=== PATIENT | female | born 1955 | race Caucasian/White ===

== ENCOUNTER → 2017-10-06 | Outpatient (CLI) | payer MEDICAID ==
[~2017-10-06] MED LIST: ACE325 PO; ASC500 PO; AVONEX IM; BACL-51 PO; CA C1TAB59 PO; CEP500 PO; CITA-156 PO; DEXL60CA6 PO; DIC10 PO; DICY10CA62 PO; EST3 PO; FISH OIL1 CAP PO; IBU800 PO; LEVO100T95 PO; LEVO112T43 PO; LEVOTHY; LIS10 PO; METXR500 PO; MULT-1335 PO; MULTI VITAMIN; OLAN15TA18 PO; OLAN20TA17 PO; OXYB10TA21 PO; PREMARIN; QUE100 PO; SIMV-42 PO; [UNRECOGNIZED DRUG - CODE]
--- NOTE | 2017-10-07 09:06 | RADIOLOGY IMAGING REPORT ---
FACILITY: [facility] - [place] PATIENT NAME: GASTON VILCHIS : [id number] MR: [id number] V: [id number] EXAM DATE: ORDERING PHYSICIAN: KARINA MCCRAY TECHNOLOGIST: Linda Dominguez PROCEDURE:BILATERAL DIGITAL SCREENING MAMMOGRAM WITH CAD ASSISTED INTERPRETATION & 3D TOMOSYNTHESIS COMPARISON:Prior mammograms 08/27/16, 03/22/15, 08/13/11 INDICATIONS:SCREENING FINDINGS: Moderately heterogeneous fibroglandular tissue is seen throughout the breasts. Most of the parenchymal pattern has remained stable allowing for difference in mammographic technique & patient positioning. There are scattered round calcifications seen throughout the breasts. The calcifications in the left breast appear slightly more conspicuous although this may be related to the difference in imaging technique. Sense the current examination was preformed with 3D breast Tomosynthesis. DIAGNOSTIC CATEGORY 3--PROBABLY BENIGN FINDING. RECOMMENDATIONS: SIX MONTH FOLLOW-UP DIAGNOSTIC MAMMOGRAM: LEFT BREAST. IMPRESSION: BIRADS 3: Probably benign finding A 6 month follow-up breast mammogram is recommended Dictated by: Ada Martinez M.D. on 10/06/2017 at 17:07 Transcribed by: MEI on 10/07/2017 at 8:14 Approved by: Ada Martinez M.D. on 10/07/2017 at 9:04 [facility]
== END ==
LOC: MAMO 00:15
PROVIDERS: ATTEND Physician Assistant
DX: Z12.31 Encounter for screening mammogram for malignant neoplasm of breast (principal); R92.1 Mammographic calcification found on diagnostic imaging of breast
CPT/HCPCS: 77063; G0202; 77067

== ENCOUNTER → 2018-04-21 | Outpatient (CLI) | payer MEDICAID ==
[~2018-04-21] MED LIST changes: +ASCO-182 PO; +BISA1POW MC; +CARB-91 PO; +CHOL10005 PO; +DIME240C2 PO; +FLAX100041 PO
--- NOTE | 2018-04-22 11:39 | RADIOLOGY IMAGING REPORT ---
[place] [facility] [place] NAME: GASTON VILCHIS : [id number] MR: [id number] V: [id number] EXAM DATE: ORDERING PHYSICIAN: KARINA MCCRAY TECHNOLOGIST: Jenniffer Lomas PROCEDURE:LEFT DIGITAL DIAGNOSTIC MAMMOGRAM WITH CAD ASSISTED INTERPRETATION & 3D TOMOSYNTHESIS COMPARISON:Prior mammograms 10/06/17, 08/27/16, 03/22/15, 08/13/11. INDICATIONS:lt breast lump FINDINGS: Moderately heterogeneous fibroglandular tissue is seen throughout the breasts. The groupings of calcifications in the upper outer quadrant of the Left breast appear more prominent and have increased in number when compared to the prior Tomographic study. Given this interval change biopsy is recommended. The patient is apparently not a candidate for a Stereotactic biopsy therefore surgical excision of these calcifications aided by a needle hook wire mammographic localization is recommended. DIAGNOSTIC CATEGORY 4--SUSPICIOUS FOR MALIGNANCY. RECOMMENDATIONS: SURGICAL BIOPSY COORDINATED WITH MAMMOGRAM HOOKWIRE LOCALIZATION: LEFT BREAST. IMPRESSION: BIRADS 4: Suspicious for malignancy. Surgical biopsy coordinated with mammographic hook wire localization of the increasing calcifications in the upper outer quadrant of the Left breast recommended for further evaluation. Dictated by: Ada Martinez M.D. on 04/21/2018 at 17:05 Transcribed by: MEI on 04/22/2018 at 7:50 Approved by: Ada Martinez M.D. on 04/22/2018 at 11:38 [facility]
== END ==
LOC: MAMO 01:31
PROVIDERS: ATTEND Physician Assistant
DX: R92.1 Mammographic calcification found on diagnostic imaging of breast (principal)
CPT/HCPCS: 77061; 77065

== ENCOUNTER 2018-05-12 00:14 | Day surgery (SDC) | payer MEDICAID ==
[~2018-05-12] VITALS: Ht 167.6 cm; Wt 80.7 kg
[~2018-05-12 00:14] MED LIST changes: +DOCU-442 PO; +ESCI10TA8 PO; +LACT1CAP6 PO; +LEVO88TA45 PO
[2018-05-12 08:42] LABS: PLATELET COUNT, AUTOMATED 311 K/uL (150-450)
[2018-05-12] MEDS ORDERED: NORMOSOL R SOLN(*) 1000 ML BAG 1,000 ML IV PRN (09:25)
[2018-05-12] MEDS ORDERED: LIDOCAINE/SOD BICARB 8.4% SYR ID ONE (09:25)
[2018-05-12] MEDS ORDERED: ceFAZolin(*) 2GM/D5W 50ML 50 ML IVPB ONE (09:25)
[2018-05-12] MEDS ORDERED: FAMOTIDINE 20 MG TAB PO ONE (09:25)
[2018-05-12] MEDS ORDERED: MIDAZOLAM 2 MG/2 ML VIAL IVP PRN (09:25)
[2018-05-12] MEDS ORDERED: METOCLOPRAMIDE 10 MG/2 ML SDV ONE (09:41)
[2018-05-12] MEDS ORDERED: LIDOCAINE MPF 1% 5 ML VIAL ONE (09:41)
[2018-05-12] MEDS ORDERED: DEXAMETHASONE SOD 4 MG/ML VIAL ONE (09:41)
[2018-05-12] MEDS ORDERED: PROPOFOL EMUL(*) 10MG/ML 20 ML 20 ML ONE (09:41)
[2018-05-12] MEDS ORDERED: ONDANSETRON 4 MG/2 ML VIAL ONE (09:41)
[2018-05-12] MEDS ORDERED: fentaNYL CITR 100 MCG/2 ML AMP ONE (09:47)
[2018-05-12 11:14] VITALS: BP 104/75
[2018-05-12] MEDS ORDERED: ROPIVACAINE 0.5% 20 ML VIAL ONE (11:23)
[2018-05-12] MEDS ORDERED: DOCU-416 PO (13:38)
[2018-05-12] MEDS ORDERED: OXYC-854 PO (13:38)
--- NOTE | 2018-05-12 13:55 | Short(Outpt) Discharge Summary ---
Discharge Summary Reason for Hosp/Final Diag: (1) Calcification of left breast on mammography Status: Chronic Hospital Course & Plan: Left breast wire guided lesion excision completed without problems. Departure Discharge to: Home, Self Care Discharge Instructions Home Meds Active Scripts Docusate Sodium (COLACE) 100 Mg Capsule, 1 CAP PO BID, #30 CAPSULE 0 Refills Prov:ANNABEL DASILVA MD 05/12/18 Oxycodone Hcl/Acet 5/325 Mg (ENDOCET 5-325 TABLET) 1 Each Tablet, 1 TAB PO Q4H PRN for PAIN, #30 TAB 0 Refills Prov:ANNABEL DASILVA MD 05/12/18 Reported Medications Lactobacillus Combination No.4 (PROBIOTIC) 1 Each Capsule, 1 EACH PO DAILY, CAPSULE 05/04/18 Docusate Sodium (DULCOLAX STOOL SOFTENER) 100 Mg Capsule, 100 MG PO DAILY, CAPSULE 05/04/18 Escitalopram Oxalate (ESCITALOPRAM OXALATE) 10 Mg Tablet, 10 MG PO QDAY, TAB 05/04/18 Levothyroxine Sodium (LEVOTHYROXINE SODIUM) 88 Mcg Tablet, 88 MCG PO QDAY 05/04/18 Flaxseed Oil (FLAX SEED OIL) 1,000 Mg Capsule, 1000 MG PO QDAY, CAPSULE 04/25/18 Cholecalciferol (Vitamin D3) (VITAMIN D3) 1,000 Unit Tablet, 1000 UNIT PO QDAY, TAB 04/25/18 Ascorbic Acid (VITAMIN C) 500 Mg Tablet, 1000 MG PO DAILY, TAB 04/25/18 Dimethyl Fumarate (TECFIDERA) 240 Mg Capsule.dr, 240 MG PO BID 04/25/18 Carbamazepine (CARBAMAZEPINE) 200 Mg Tablet, 200 MG PO TID 04/25/18 Oxybutynin Chloride (DITROPAN XL) 10 Mg Tab.er.24, 10 MG PO TID, TAB 04/25/18 Baclofen (Lioresal Intrathecal) 500 Mcg/Ml/Kit Kit, 75 MCG DAILY 04/30/12 Metformin Hcl (Metformin Er) 500 Mg Tab.sr.24h, 500 MG PO DAILY, 0 Refills 08/18/11 Simvastatin (Zocor) 20 Mg Tablet, 20 MG PO QHS, 0 Refills 08/18/11 Olanzapine (Zyprexa) 20 Mg Tablet, 20 MG PO DAILY, 0 Refills 08/18/11 Lisinopril (Prinivil) 10 Mg Tab, 0 PO QDAY, #20 0 Refills 03/03/09 Follow up Referrals: General Surgery - 05/17/18 @ Surgery, General with ANNABEL DASILVA MD You have a follow up appointment scheduled with Dr. Dasilva on 05/27/18, at 9:15am. Diet: Regular Activity: As Tolerated Special Instructions: You may remove the white surgical dressings on 05/14/18, then you can shower. After showering, leave the incisions open to air but leave the steristrips in place until they fall off on their own. Do not immerse the incisions for 2 weeks. ANNABEL DASILVA MD May 12, 2018 13:55
--- NOTE | 2018-05-12 14:04 | Post Operative Progress Note ---
Post Operative Progress Note Date: May 12, 2018 Time: 13:57 Surgeon: Marco Antonio Dictation number: [id number] Anesthesia: LMA by Dr. Heard Pre-Op Diagnosis: Left breast calcifications on mammogram Post-Op Diagnosis: SANKET Findings: C/W dx Procedure(s): Left breast wire guided lesion excision Specimen Removed:(May be N/A): Left breast lesion Complications: None Fluids: See anesthesia record Estimated Blood Loss: Minimal Date OP Note Dictated: May 12, 2018 Time OP Note Dictated: 14:00 ANNABEL DASLIVA MD May 12, 2018 14:04
[2018-05-12 14:23] VITALS: BP 115/71
[2018-05-12 15:00] VITALS: BP 106/62
[2018-05-12 15:31] VITALS: BP 111/73
--- NOTE | 2018-05-12 15:45 | OPERATIVE REPORT 1 ---
EVENT DATE: May 12, 2018 SURGEON: Richi Bernard MD ANESTHESIOLOGIST: Richi Heard MD ANESTHESIA: LMA. PREOPERATIVE DIAGNOSIS Left breast suspicious calcifications on mammogram. POSTOPERATIVE DIAGNOSIS Left breast suspicious calcifications on mammogram. PROCEDURE PERFORMED Left breast wire-guided lesion excision. COMPLICATIONS None. CONDITION Stable. BLOOD LOSS Minimal. INDICATIONS This 62-year-old female was referred to my office with left breast calcifications that had been changing and are more prominent and large of a cluster. They are suspicious, but because of her MS, she cannot be placed on the stereotactic biopsy table to biopsy these lesions. She has been sent to me to have a wire-guided excision biopsy. DESCRIPTION OF PROCEDURE Patient brought to the operating room, placed supine on the operating table. LMA anesthesia was administered, and her left breast was prepped and draped in a sterile fashion. Timeout was completed. I had previously reviewed the wire placement imaging with the radiologist. I marked the skin and then anesthetized the skin along the circumareolar border over the left areola and then made a circumareolar incision. I dissected through the dermis and subcutaneous fat and then went through the subcutaneous fat into the breast tissue until I identified the inferior wire. The radiologist had actually placed two wires, one from a cephalad direction which was not a good placement that she was not happy with, and so she placed a better placed wire from lateral entry site into the clusters of calcifications. I then pulled the wire into the wound and dissected around the wire, identified the other wire, pulled it into the wound, then removed the specimen, placed it on a grid, and ran it over to mammography. I reviewed the specimen mammography with the radiologist. It looked like a good specimen with most of the calcifications within the specimen, but around the edge of the specimen, there were some calcifications. I returned to the operating room, scrubbed back in, and then removed some more tissue from where the tip of the wire in where these calcifications had been. These were sent for permanent pathology labeled medial portion of specimen. I then irrigated and dried the wound, made sure it was hemostatic. I closed the subcutaneous pocket with interrupted 3-0 Vicryl sutures and then closed the skin with interrupted 3-0 Vicryl deep dermal sutures with 4-0 Monocryl running subcuticular suture. Skin was cleaned and dried, and Steri-Strips were applied, followed by a sterile surgical dressing. The patient was awakened, extubated in the operating room, and transported to recovery room in stable condition having tolerated the procedure without any apparent problems. MONIQUE
--- NOTE | 2018-05-13 15:55 | RADIOLOGY IMAGING REPORT ---
FACILITY: [facility] [place] PATIENT NAME: GASTON VILCHIS : [id number] MR: [id number] V: [id number] EXAM DATE: [id number] ORDERING PHYSICIAN: ANNABEL DASILVA TECHNOLOGIST: Jenniffer Lomas PROCEDURE: NEEDLE LOCALIZATION LEFT BREAST COMPARISON: None. INDICATIONS: Increasing calcifications in the Left breast FINDINGS: Informed consent was obtained. The increasing calcifications were localized mammographically. The Left breast was prepped in the usual sterile fashion. Local anesthesia was accomplished with 1% lidocaine. A needle hook wire was advanced percutaneously from the upper cranial candid approach into the vicinity of the indeterminate calcifications. The needle could not be adequately placed on the lateral medial view therefore the patient was then repositioned, reprepped and administered additional local anesthesia with 1% lidocaine. The needle hook wire then advanced percutaneously from a lateral approach with the hook wire deployed passing between the 2 focal collections of microcalcifications. The needle was removed and the patient was sent to the operating room for surgical excision. The procedure was accomplished without apparent complication. CONCLUSION: 1. Successful mammographically hook wire localization of the increasing calcifications in the lateral portion of the Left breast. Dictated by: Ada Martinez M.D. on 05/12/2018 at 15:47 Transcribed by: MEI on 05/13/2018 at 11:23 Approved by: Ada Martinez M.D. on 05/13/2018 at 15:54 [facility]
--- NOTE | 2018-05-13 15:55 | RADIOLOGY IMAGING REPORT ---
[place] [facility] [place] NAME: GASTON VILCHIS : [id number] MR: [id number] V: [id number] EXAM DATE: [id number] ORDERING PHYSICIAN: ANNABEL DASILVA TECHNOLOGIST: Linda Dominguez PROCEDURE: BREAST SPECIMEN RADIOGRAPH COMPARISON: None. INDICATIONS: See Dx FINDINGS: Surgical specimen radiograph from Today's Left breast lumpectomy demonstrates 2 hook wires located within the specimen. Most of the calcifications identified in the lateral portion of the Left breast were present in the surgical specimen. RECOMMENDATIONS: CONCLUSION: As above. Dictated by: Ada Martinez M.D. on 05/12/2018 at 16:26 Transcribed by: MEI on 05/13/2018 at 10:54 Approved by: Ada Martinez M.D. on 05/13/2018 at 15:54 [facility]
== END 2018-05-12 14:22 | disposition home or self-care (01) ==
LOC: OR 00:14
PROVIDERS: ATTEND Surgery
DX: R92.0 Mammographic microcalcification found on diagnostic imaging of breast (principal)
CPT/HCPCS: 19125; 19283; 36415; 80156; 85025; 88305; J1100; J2001; J2405; J2704; J2795; J3010; 82310; 82374; 82435; 82565; 82947; 84132; 84295; 84520; J0690; J2765

== ENCOUNTER 2018-06-03 00:17 | Observation (INO) | payer MEDICAID ==
[~2018-06-03] VITALS: Ht 167.6 cm; Wt 83.0 kg
[~2018-06-03 00:17] MED LIST changes: +BIOT300T6 PO; +DOCU-416 PO; +OXYC-854 PO
[2018-06-03] MEDS ORDERED: LIDOCAINE/PRILOCAINE 5 GM TUBE TP ONE (12:00)
--- NOTE | 2018-06-03 12:12 | EKG ---
FACILITY: [facility] PATIENT NAME: GASTON VILCHIS : [id number] MR: [id number] V: [id number] EXAM DATE: ORDERING PHYSICIAN: STEPHANIE SEPULVEDA TECHNOLOGIST: ANNA Gan Reason : PRE-OP Blood Pressure : / mmHG Vent. Rate : 074 BPM Atrial Rate : 074 BPM P-R Int : 158 ms QRS Dur : 092 ms QT Int : 410 ms P-R-T Axes : 054 002 037 degrees QTc Int : 455 ms Normal sinus rhythm Normal ECG When compared with ECG of 02-JAN-2015 15:25, No significant change was found Confirmed by ANNABEL VANCE ([id number]) on 06/03/2018 7:39:55 PM Referred By: VIDYA Confirmed By:ANNABEL VANCE
[2018-06-03] MEDS ORDERED: ONDANSETRON 4 MG/2 ML VIAL ONE (12:14)
[2018-06-03] MEDS ORDERED: LIDOCAINE MPF 1% 5 ML VIAL ONE (12:14)
[2018-06-03] MEDS ORDERED: DEXAMETHASONE SOD 4 MG/ML VIAL ONE (12:14)
[2018-06-03] MEDS ORDERED: PROPOFOL EMUL(*) 10MG/ML 20 ML 20 ML ONE (12:14)
[2018-06-03] MEDS ORDERED: fentaNYL CITR 100 MCG/2 ML AMP ONE ×3 (12:15→19:41)
[2018-06-03] MEDS ORDERED: KETAMINE HCL 200 MG/20 ML MDV ONE (12:16)
[2018-06-03] MEDS ORDERED: LIDOCAINE/SOD BICARB 8.4% SYR ID ONE (12:30)
[2018-06-03] MEDS ORDERED: ceFAZolin(*) 2GM/D5W 50ML 50 ML IVPB ONE (12:30)
[2018-06-03] MEDS ORDERED: MIDAZOLAM 2 MG/2 ML VIAL IVP PRN (12:30)
[2018-06-03] MEDS ORDERED: FAMOTIDINE 20 MG TAB PO ONE (12:30)
[2018-06-03] MEDS ORDERED: NORMOSOL R SOLN(*) 1000 ML BAG 1,000 ML IV PRN (12:30)
[2018-06-03 12:51] VITALS: BP 113/74
[2018-06-03] MEDS ORDERED: ROPIVACAINE 0.5% 20 ML VIAL ONE (14:28)
[2018-06-03] MEDS ORDERED: ISOSULFAN BLUE 1% SLN 50MG/5ML ONE (14:28)
[2018-06-03] MEDS ORDERED: CITA-145 PO (14:34)
[2018-06-03] MEDS ORDERED: CARB200C4 PO (14:34)
[2018-06-03] MEDS ORDERED: LEVO112T9 (14:34)
--- NOTE | 2018-06-03 15:32 | RADIOLOGY IMAGING REPORT ---
[place] [facility] [place] NAME: Lawanda Kent : 1955 MR: [id number] V: [id number] EXAM DATE: ORDERING PHYSICIAN: ANNABEL DASILVA TECHNOLOGIST: [facility] Patient: Lawanda Kent : 1955 Visit/Account:[id number] Date of Sevice: 06/03/2018 Exam type: SENTINAL NODE STUDY History: Left breast cancer Comparison: None. Findings: The patient received 490 uCi of technetium 99 M lymphocele and 4 subcutaneous left periareolar inject ions. There appear to be a single left axillary sentinel lymph node IMPRESSION: 1. Single left axillary sentinel lymph node Report Dictated By: Ada Martinez MD at 06/03/2018 3:27 PM Report E-Signed By: Ada Martinez MD at 06/03/2018 3:28 PM WSN:[id number]
[2018-06-03] MEDS ORDERED: NS(*) 0.9% 1000 ML BAG 1,000 ML IV PRN (19:49)
[2018-06-03] MEDS ORDERED: ONDANSETRON 4 MG/2 ML VIAL IVP PRN (19:50)
[2018-06-03] MEDS ORDERED: NALOXONE HCL 0.4 MG/ML VIAL IVP PRN (19:50)
[2018-06-03] MEDS ORDERED: MORPHINE 2 MG/ML SYR IVP PRN (19:50)
[2018-06-03] MEDS ORDERED: FLUSH 10 ML SYR IVP PRN (19:50)
--- NOTE | 2018-06-03 20:04 | Post Operative Progress Note ---
Post Operative Progress Note Date: Jun 03, 2018 Time: 19:56 Surgeon: Marco Antonio Dictation number: [id number] Anesthesia: LMA by Dr. Jameson Pre-Op Diagnosis: Left breast cancer Post-Op Diagnosis: SANKET Findings: No sentinal lymph nodes could be identified so axillary dissection completed Procedure(s): Left MRM Specimen Removed:(May be N/A): Left axillary contents Left breast Complications: None Fluids: See anesthesia record Estimated Blood Loss: 50mL Date OP Note Dictated: Jun 03, 2018 Time OP Note Dictated: 19:57 ANNABEL DASILVA MD Jun 03, 2018 20:04
[2018-06-03 20:12] VITALS: BP 122/74
--- NOTE | 2018-06-03 20:38 | OPERATIVE REPORT 1 ---
EVENT DATE: June 03, 2018 SURGEON: Richi Bernard MD ANESTHESIOLOGIST: Bernardino Rodriguez MD ANESTHESIA: General endotracheal anesthesia. PREOPERATIVE DIAGNOSIS Left breast cancer. POSTOPERATIVE DIAGNOSIS Left breast cancer. PROCEDURE PERFORMED Left modified radical mastectomy. COMPLICATIONS None. CONDITION Stable. BLOOD LOSS 50 mL SPECIMENS 1. Left axillary contents. 2. Left breast. INDICATIONS This is a 62-year-old female who was initially referred to me with a suspicious lesion on mammography, but an image-guided biopsy was not possible because she could not be placed in a stereotactic biopsy machine due to multiple sclerosis. I performed a wire-guided excision of the suspicious area, which revealed multifocal breast cancer, and the margins were positive. Because of the diffuse nature of this process, I recommended a mastectomy with sentinel lymph node biopsy and possible axillary dissection. After considering her options, she agreed to proceed with this procedure. DESCRIPTION OF PROCEDURE The patient was brought to the operating room and placed supine on the operating table. General endotracheal anesthesia was administered, and her left breast and axilla were prepped and draped in a sterile fashion. Timeout was completed, and I used the gamma probe to try to identify a sentinel lymph node in her left axilla. I did inject 5 mL of Lymphazurin in the dermis around her areola before surgery. I was unable to detect any significant gamma output from her axilla. I had reviewed the nuclear medicine study with the radiologist before surgery, and she had seen a lightly lit up, ovoid object in the axilla, but it was not clear if this was a sentinel lymph node. I went ahead and made an incision in the axilla and dissected through the dermis and subcutaneous fat. I entered the axillary contents. I used the gamma probe several more times, but could not identify a sentinel node. At this point, I proceeded to perform an axillary dissection, so dissected superiorly until I identified the axillary vein and then stripped the axillary contents off the chest wall and off the latissimus muscle from inferior to the axillary vein. I did identify the thoracodorsal nerve and the long thoracic nerve as well. Ultimately, I was able to free up the entire axillary contents and skeletonize these neurovascular structures. This was passed off the field and sent for permanent to Pathology. I then turned my attention to her left breast, and she desired a skin-sparing mastectomy, but she wanted me to take the nipple and areolar complex. I marked the skin around the areolar margin and then medially and laterally. I anesthetized the skin and then made an incision around the areola and then along my skin markings medially and laterally. I dissected through the dermis and subcutaneous fat, and I created skin flaps superiorly up to the clavicle, medially towards the sternum, inferiorly to the superior fibers of the abdominal rectus muscle, and laterally to the edge of the pectoralis muscle. The previous excision site in the lower-outer quadrant was very hard, and there was a fluid- filled seroma left behind. Because of the diagnosis of cancer, I went ahead and made a U-shaped incision around this inferior to my main incision so I could get the overlying skin over the previous excision site since it was coming right up to the skin. I then dissected around this and then peeled the rest off the underlying pectoralis major muscle and included the muscle fascia with the specimen in it. I passed the specimen off the field. I then irrigated and dried the wound. I placed two 10 mm flat Matheus-Arias drains, one going medially and one going laterally into the left axilla. I then sutured the drains to the skin with 2-0 silk sutures. I then cut some corners off the skin where I had to make the extra incision in order to make it come together and look good, and then I closed the skin with interrupted 3-0 Vicryl deep dermal sutures and 4-0 Monocryl running subcuticular suture. I also closed the skin in the axilla with interrupted 3-0 Vicryl deep dermal sutures and 4-0 Monocryl in a running subcuticular suture. Skin was cleaned and dried, and Steri-Strips were applied, followed by sterile surgical dressings. I placed drain dressings around the drains. The patient was then awakened and extubated in the operating room and transported to the recovery room in stable condition having tolerated the procedure without any apparent problems. MONIQUE
[2018-06-03] MEDS: DIMETHYL FUMARATE 240 MG CAPSULE.DR PO SCH (21:00)
[2018-06-03] MEDS: DOCUSATE SODIUM 100 MG CAP PO SCH (21:42)
[2018-06-03] MEDS: OXYBUTYNIN CHL XL 5 MG TABCR PO SCH (21:42)
[2018-06-03] MEDS: FAMOTIDINE 20 MG TAB PO SCH (21:42)
[2018-06-03] MEDS: carBAMazepine 200 MG TAB PO SCH (21:42)
[2018-06-03] MEDS: SIMVASTATIN 20 MG TAB PO SCH (21:43)
[2018-06-03 21:45] VITALS: BP 127/76
[2018-06-04 04:07] VITALS: BP 90/56
[2018-06-04] MEDS: LEVOTHYROXINE SOD 0.112 MG TAB PO SCH (05:31)
[2018-06-04 08:32] VITALS: BP 91/62
[2018-06-04] MEDS: DOCUSATE SODIUM 100 MG CAP PO SCH ×2 (08:36→20:53)
[2018-06-04] MEDS: FAMOTIDINE 20 MG TAB PO SCH ×2 (08:37→20:53)
[2018-06-04] MEDS: OXYBUTYNIN CHL XL 5 MG TABCR PO SCH ×3 (08:37→20:52)
[2018-06-04] MEDS: metFORMIN HCL XR 500 MG TABCR PO SCH (08:38)
[2018-06-04] MEDS: carBAMazepine 200 MG TAB PO SCH ×3 (08:38→20:52)
[2018-06-04] MEDS: ASCORBIC ACID 500 MG TAB PO SCH (08:38)
[2018-06-04] MEDS: CHOLECALCIFEROL 1000 UNIT TAB PO SCH (08:38)
[2018-06-04] MEDS: BACLOFEN INTRATHEC SCH (08:39)
[2018-06-04] MEDS: [UNRECOGNIZED DRUG - OTHER] INTRATHEC SCH (08:39)
[2018-06-04] MEDS: FLAXSEED 1000 MG PO SCH ×2 (08:40→16:42)
[2018-06-04] MEDS: DIMETHYL FUMARATE 240 MG CAPSULE.DR PO SCH ×3 (08:40→20:51)
[2018-06-04] MEDS: LISINOPRIL 10 MG TAB PO SCH (08:40)
[2018-06-04] MEDS ORDERED: OLANZapine 5 MG TAB PO SCH (09:00)
[2018-06-04] MEDS ORDERED: CITALOPRAM HYDROBROM 20 MG TAB PO SCH (09:00)
[2018-06-04] MEDS ORDERED: ROPIVACAINE 0.2% 20 ML VIAL ONE (10:29)
[2018-06-04 11:20] VITALS: BP 86/54
--- NOTE | 2018-06-04 11:39 | General Surgery Progress Note ---
Subjective Progress Notes Subjective No complaints. Not much pain. Family is very concerned about discharging her to home. The way they typically transfer her from vehicle to wheelchair and back is by grabbing her under her armpit but they can't do this with her surgical incisions in the way so they're wondering how they're going to be able to transfer her to/from her wheel chair. Physical Exam Vital Signs Date Time Temp Pulse Resp B/P (MAP) Pulse Ox O2 Delivery O2 Flow Rate FiO2 06/04/18 11:20 98.5 88 18 86/54 (65) 91 Room Air 06/04/18 08:32 1.0 Intake and Output 06/04/18 06:59 Intake Total 1900 ml Output Total 110 ml Balance 1790 ml Intake Oral 100 ml IV Total 1800 ml Output Drainage Total 110 ml # Voids 0 General Appearance: Alert, Awake, No Acute Distress, Afebrile Chest: Other (Dressings look good, C/D/I. ALON drains with bloody drainage.) Extremities: Warm, Perfused Assessment and Plan Problems: (1) Breast cancer, left Status: Chronic Assessment & Plan: 06/04/18: POD#1 s/p left MRM. Doing well. Need to figure out he she can be transferred to/from wheelchair without disrupting her surgical incisions/drains. Will ask PT to see her and see if there's any way to do this. May need to keep her in the hospital until Wednesday when she can go home via [employer] bus which has a wheelchair lift. Condition Stable. Time Spent: < 30 min Exam Sepsis Risk: No Definite Risk Problem Qualifiers (1) Breast cancer, left: Breast location: lower outer quadrant of breast Estrogen receptor status: positive Patient sex: female Qualified Codes: C50.512 - Malignant neoplasm of lower-outer quadrant of left female breast; Z17.0 - Estrogen receptor posi tive status [ER+] ANNABEL DASILVA MD Jun 04, 2018 11:39
[2018-06-04 12:33] VITALS: Ht 167.6 cm; Wt 83.0 kg
[2018-06-04] MEDS ORDERED: ESC10 PO (13:18)
[2018-06-04] MEDS ORDERED: MAGNESIUM CITRATE 300 ML BTL PO PRN (13:25)
[2018-06-04] MEDS ORDERED: BISACODYL 10 MG SUPP PR PRN (13:25)
[2018-06-04] MEDS: POLYETHYLENE GLYCOL 17 GM PKT PO SCH (14:43)
[2018-06-04] MEDS: ESCITALOPRAM OXALATE 10 MG TAB PO SCH (14:43)
[2018-06-04 14:58] VITALS: BP 102/56
[2018-06-04 19:00] VITALS: BP 101/59
[2018-06-04] MEDS: SIMVASTATIN 20 MG TAB PO SCH (20:52)
[2018-06-04] MEDS: OLANZapine 5 MG TAB PO SCH (20:52)
[2018-06-05 03:54] VITALS: BP 100/59
[2018-06-05] MEDS: LEVOTHYROXINE SOD 0.112 MG TAB PO SCH (06:12)
[2018-06-05 08:10] VITALS: BP 103/68
[2018-06-05] MEDS: BACLOFEN INTRATHEC SCH (09:00)
[2018-06-05] MEDS: POLYETHYLENE GLYCOL 17 GM PKT PO SCH (09:00)
[2018-06-05] MEDS: FLAXSEED 1000 MG PO SCH (09:00)
[2018-06-05] MEDS: [UNRECOGNIZED DRUG - OTHER] INTRATHEC SCH (09:00)
[2018-06-05] MEDS: ASCORBIC ACID 500 MG TAB PO SCH (09:34)
[2018-06-05] MEDS: ESCITALOPRAM OXALATE 10 MG TAB PO SCH (09:34)
[2018-06-05] MEDS: carBAMazepine 200 MG TAB PO SCH ×3 (09:34→20:24)
[2018-06-05] MEDS: FAMOTIDINE 20 MG TAB PO SCH ×2 (09:34→20:24)
[2018-06-05] MEDS: OXYBUTYNIN CHL XL 5 MG TABCR PO SCH ×3 (09:35→20:23)
[2018-06-05] MEDS: DOCUSATE SODIUM 100 MG CAP PO SCH ×2 (09:35→20:24)
[2018-06-05] MEDS: CHOLECALCIFEROL 1000 UNIT TAB PO SCH (09:35)
[2018-06-05] MEDS: LISINOPRIL 10 MG TAB PO SCH (09:35)
[2018-06-05] MEDS: DIMETHYL FUMARATE 240 MG CAPSULE.DR PO SCH ×2 (09:36→20:23)
[2018-06-05] MEDS: metFORMIN HCL XR 500 MG TABCR PO SCH (09:37)
--- NOTE | 2018-06-05 09:45 | General Surgery Progress Note ---
Subjective Progress Notes Subjective No complaints this morning. Not much pain at all. Physical Exam Vital Signs Date Time Temp Pulse Resp B/P (MAP) Pulse Ox O2 Delivery O2 Flow Rate FiO2 06/05/18 08:10 98.5 84 16 103/68 (80) 91 Room Air 06/04/18 08:32 1.0 Intake and Output 06/05/18 07:00 Intake Total 1010 ml Output Total 126 ml Balance 884 ml Intake Oral 1010 ml Output Drainage Total 126 ml # Voids 4 # Bowel Movements 1 General Appearance: Alert, Awake, No Acute Distress, Afebrile Chest: Other (Dressings removed, incisions look good without erythema or drainage. Drains with more serous, slightly sanguinous drainage.) Extremities: Warm, Perfused Assessment and Plan Problems: (1) Breast cancer, left Status: Chronic Assessment & Plan: 06/04/18: POD#1 s/p left MRM. Doing well. Need to figure out he she can be transferred to/from wheelchair without disrupting her surgical incisions/drains. Will ask PT to see her and see if there's any way to do this. May need to keep her in the hospital until Wednesday when she can go home via [employer] which has a wheelchair lift. 06/05/18: POD#2. Doing well. No issues today. Will d/c to home tomorrow when she'll have transfer help via [employer] bus to get her home. Condition Stable. Time Spent: < 30 min Exam Sepsis Risk: No Definite Risk Problem Qualifiers (1) Breast cancer, left: Breast location: lower outer quadrant of breast Estrogen receptor status: positive Patient sex: female Qualified Codes: C50.512 - Malignant neoplasm of lower-outer quadrant of left female breast; Z17.0 - Estrogen receptor positive status [ER+] ANNABEL DASILVA MD Jun 05, 2018 09:45
[2018-06-05 14:36] VITALS: BP 104/64
[2018-06-05 18:41] VITALS: BP 98/60
[2018-06-05] MEDS: SIMVASTATIN 20 MG TAB PO SCH (20:23)
[2018-06-05] MEDS: OLANZapine 5 MG TAB PO SCH (20:26)
[2018-06-05 22:41] VITALS: BP 101/68
[2018-06-06 05:21] VITALS: BP 105/71
[2018-06-06] MEDS: LEVOTHYROXINE SOD 0.112 MG TAB PO SCH (05:24)
[2018-06-06 07:26] VITALS: BP 109/70
--- NOTE | 2018-06-06 08:04 | Short(Outpt) Discharge Summary ---
Discharge Summary Reason for Hosp/Final Diag: (1) Breast cancer, left Status: Chronic Hospital Course & Plan: 06/04/18: POD#1 s/p left MRM. Doing well. Need to figure out he she can be transferred to/from wheelchair without disrupting her surgical incisions/drains. Will ask PT to see her and see if there's any way to do this. May need to keep her in the hospital until Wednesday when she can go home via [facility] bus which has a wheelchair lift. 06/05/18: POD#2. Doing well. No issues today. Will d/c to home tomorrow when she'll have transfer help via [facility] to get her home. 06/06/18: POD#3. Doing well. Will d/c to home this morning. Departure Discharge to: Home, Self Care Discharge Instructions Home Meds Active Scripts Docusate Sodium (COLACE) 100 Mg Capsule, 1 CAP PO BID, #30 CAPSULE 0 Refills Prov:ANNABEL DASILVA MD 05/12/18 Reported Medications Escitalopram Oxalate (LEXAPRO) 10 Mg Tab, 10 MG PO DAILY, TAB 06/04/18 Levothyroxine Sodium (Levo-T) 112 Mcg Tablet, DAILY 06/03/18 Carbamazepine (CARBAMAZEPINE) 200 Mg Cpmp.12hr, 200 MG PO TID 06/03/18 Flaxseed Oil (FLAX SEED OIL) 1,000 Mg Capsule, 1000 MG PO QDAY, CAPSULE 04/25/18 Cholecalciferol (Vitamin D3) (VITAMIN D3) 1,000 Unit Tablet, 1000 UNIT PO QDAY, TAB 04/25/18 Ascorbic Acid (VITAMIN C) 500 Mg Tablet, 1000 MG PO DAILY, TAB 04/25/18 Dimethyl Fumarate (TECFIDERA) 240 Mg Capsule.dr, 240 MG PO BID 04/25/18 Oxybutynin Chloride (DITROPAN XL) 10 Mg Tab.er.24, 10 MG PO TID, TAB 04/25/18 Baclofen (Lioresal Intrathecal) 500 Mcg/Ml/Kit Kit, 75 MCG DAILY 04/30/12 Metformin Hcl (Metformin Er) 500 Mg Tab.sr.24h, 500 MG PO DAILY, 0 Refills 08/18/11 Simvastatin (Zocor) 20 Mg Tablet, 20 MG PO QHS, 0 Refills 08/18/11 Olanzapine (Zyprexa) 20 Mg Tablet, 20 MG PO DAILY, 0 Refills 08/18/11 Lisinopril (Prinivil) 10 Mg Tab, 0 PO QDAY, #20 0 Refills 03/03/09 Discontinued Reported Medications Citalopram Hydrobromide (CITALOPRAM HBR) 20 Mg Tablet, 40 MG PO QDAY, #5 TAB 06/03/18 Biotin (BIOTIN) 300 Mcg Tablet, 400 MCG PO DAILY 05/31/18 Lactobacillus Combination No.4 (PROBIOTIC) 1 Each Capsule, 1 EACH PO DAILY, CAPSULE 05/04/18 Escitalopram Oxalate (ESCITALOPRAM OXALATE) 10 Mg Tablet, 10 MG PO QDAY, TAB 05/04/18 Levothyroxine Sodium (LEVOTHYROXINE SODIUM) 88 Mcg Tablet, 88 MCG PO QDAY 05/04/18 Docusate Sodium (DULCOLAX STOOL SOFTENER) 100 Mg Capsule, 100 MG PO DAILY, CAPSULE 05/04/18 Discontinued Scripts Oxycodone Hcl/Acet 5/325 Mg (ENDOCET 5-325 TABLET) 1 Each Tablet, 1 TAB PO Q4H PRN for PAIN, #30 TAB 0 Refills Prov:ANNABEL DASILVA MD 05/12/18 Follow up Referrals: General Surgery - 06/17/18 @ Surgery, General with ANNABEL DASILVA MD You have a follow up appointment scheduled with Dr. Dasilva on 06/17/18, at 2:00pm. Diet: Regular Activity: As Tolerated Special Instructions: You may bath as desired but don't immerse the incisions for 2 weeks. Empty the drains at least once each day, more often if needed, and record how much you empty from each drain seperately in you drain log. When the drains are draining less than 25mL/24 hours for 2 consecutive days, call my office and we'll have you come in so I can remove the drains. Otherwise, I'll see you back in my office as scheduled on 06/17/18, at 2:00pm. Problem Qualifiers (1) Breast cancer, left: Breast location: lower outer quadrant of breast Estrogen receptor status: positive Patient sex: female Qualified Codes: C50.512 - Malignant neoplasm of lower-outer quadrant of left female breast; Z17.0 - Estrogen receptor positive status [ER+] ANNABEL DASILVA MD Jun 06, 2018 08:04
[2018-06-06] MEDS: FLAXSEED 1000 MG PO SCH (09:00)
[2018-06-06] MEDS: metFORMIN HCL XR 500 MG TABCR PO SCH (09:14)
[2018-06-06] MEDS: POLYETHYLENE GLYCOL 17 GM PKT PO SCH (09:14)
[2018-06-06] MEDS: FAMOTIDINE 20 MG TAB PO SCH (09:14)
[2018-06-06] MEDS: ASCORBIC ACID 500 MG TAB PO SCH (09:15)
[2018-06-06] MEDS: OXYBUTYNIN CHL XL 5 MG TABCR PO SCH (09:15)
[2018-06-06] MEDS: DOCUSATE SODIUM 100 MG CAP PO SCH (09:15)
[2018-06-06] MEDS: LISINOPRIL 10 MG TAB PO SCH (09:15)
[2018-06-06] MEDS: carBAMazepine 200 MG TAB PO SCH (09:15)
[2018-06-06] MEDS: CHOLECALCIFEROL 1000 UNIT TAB PO SCH (09:15)
[2018-06-06] MEDS: ESCITALOPRAM OXALATE 10 MG TAB PO SCH (09:15)
[2018-06-06] MEDS: BACLOFEN INTRATHEC SCH (09:16)
[2018-06-06] MEDS: [UNRECOGNIZED DRUG - OTHER] INTRATHEC SCH (09:16)
[2018-06-06] MEDS: DIMETHYL FUMARATE 240 MG CAPSULE.DR PO SCH (09:16)
== END 2018-06-06 08:00 | disposition home or self-care (01) ==
LOC: OR 00:17 → MED 20:12 → INTOOBSV 20:12
PROVIDERS: ADMIT Surgery; ATTEND Surgery
DX: C50.912 Malignant neoplasm of unspecified site of left female breast (principal); I10 Essential (primary) hypertension; R73.03 Prediabetes
CPT/HCPCS: 19307; 36416; 78195; 82948; 88305; 88309; 88344; 93005; 97162; A9520; G0378; J1100; J2001; J2250; J2405; J2704; J2795; J3010; J3490; Q9968; J0690

== ENCOUNTER → 2018-07-14 | Outpatient (CLI) | payer MEDICAID ==
[2018-06-04 12:33] VITALS: BMI 29.5
[~2018-07-14] MED LIST changes: +CARB200C4 PO; +CITA-145 PO; +ESC10 PO; +LEVO112T9
--- NOTE | 2018-07-14 13:46 | RADIOLOGY IMAGING REPORT ---
FACILITY: [facility] - [place] PATIENT NAME: Lawanda Kent : 1955 MR: [id number] V: [id number] EXAM DATE: ORDERING PHYSICIAN: KARINA MCCRAY TECHNOLOGIST: Location: [facility] [place] Patient: Lawanda eKnt : 1955 Visit/Account:[id number] Date of Sevice: 07/14/2018 DEXA Scan Clinical history: Postmenopausal history of MS. Comparison: DEXA scan from 03/22/2015. LUMBAR SPINE: The bone mineral density (BMD) measured from L2-L4 correlates with a Z-score of 0.9 and a T-score of -0.2 which is Normal as defined by the World Health Organization. The corresponding risk of fracture in the lumbar spine is Not increased compared with a young adult reference population. This value h as decrease by 4.5 % since the prior study. More than 5% change is considered significant. HIP: Bone mineral density (BMD) measured in the LEFT total hip region correlates with a Z-score -0.9 and a T-score of -1.7 which is osteopenia as defined by the World Health Organization. The corresponding risk of fracture in the hip is 3-4 times increased compared to a young adult reference population. Th is value has decrease by 3.1 % since the prior study. More than 5% change is considered significant. T score left femoral neck -1.4 Bone mineral density (BMD) measured in the Femoral Neck region measures 0.844 g/cm?. IMPRESSION: 1. Lumbar spine: Normal. There has been 4.5% decrease in the bone mineral density since the previou s exam. 2. Left Total Hip: Osteopenia. There has been 3.1% decrease in the bone mineral density since the p revious exam. 3. Femoral Neck: Bone Mineral Density is 0.844 g/cm? The next DEXA scan of this patient should include the following sites: L2-L4 and the left hip. FRAX? WHO Fracture Risk Assessment Tool link: <http://www.shef.ac.uk/FRAX/tool.jsp?locationValue=9> PLEASE NOTE: 1) The World Health Organization defines low BMD as follows: T-score Normal > -1 Osteopenia < -1 and > -2.5 Osteoporosis < -2.5 without fractures Established osteoporosis < -2.5 with fractures 2) In general, you may wish to consider: Diagnosis Treatment Follow-up DEXA Normal BMD Prevention 2-3 years Osteopenia Prevention/therapy 1-2 years Osteoporosis Therapy Yearly 3) Fracture risk estimated from the T-score is more accurate for vertebral fractures (often spontane ous) than for hip fractures. Report Dictated By: Ada Martinez MD at 07/14/2018 1:38 PM Report E-Signed By: Ada Martinez MD at 07/14/2018 1:41 PM WSN:[email or web address]
== END ==
LOC: RAD 12:48
PROVIDERS: ATTEND Physician Assistant
DX: M85.80 Other specified disorders of bone density and structure, unspecified site (principal)
CPT/HCPCS: 77080

== ENCOUNTER 2018-07-27 14:24 | Outpatient (RCR) | payer MEDICAID ==
[2018-06-04 12:33] VITALS: BMI 29.5
[2018-06-29 10:01] VITALS: BP 95/62
--- NOTE | 2018-06-29 14:20 | ONCOLOGY HISTORY AND PHYSICAL ---
EVENT DATE: June 29, 2018 REASON FOR VISIT Newly diagnosed left breast cancer, status post mastectomy. CHIEF COMPLAINT Fatigue, weakness, long history of multiple sclerosis. HISTORY OF PRESENT ILLNESS Lawanda is a delightful 62-year-old female with a history of longstanding multiple sclerosis who is wheelchair/scooter bound, hyperlipidemia, hypertension, peptic ulcer disease, depression, diabetes mellitus and hyperthyroidism. She also has a history of left-sided trigeminal neuralgia for which she underwent gamma knife therapy remotely. To review, the patient underwent bilateral mammogram in April 2018. There were increasing calcifications in the left upper outer quadrant. She was not a candidate to undergo stereotactic biopsy so she did undergo needle localization and surgical biopsy of the area on the left breast. The biopsy did reportedly show findings consistent with breast cancer. Subsequently, on June 03, she underwent mastectomy due to concern for the diffuse nature of neoplasm accompanied by sentinel lymph node biopsy. The patient reports doing quite well with her surgery and she has had had minimal, if any, postoperative pain. The surgical specimen has revealed evidence of low-grade DCIS as well as a 5 mm focus on invasive carcinoma. Margins were negative. Zero of five left axillary lymph nodes were involved. The tumor itself is ER/PA positive, HER2 negative (1+ by IHC). Ki-67 was elevated, however, at 27.1%. The patient has essentially returned to her preoperative baseline in terms of quality of life and activities of daily living. She is confined to a chair and she is dependent on aids at home for transfers during the week and her is able to help with this during the weekends. She reports no pain today and she denies fever. For the most part, her appetite has been pretty good. Her main complaint today outside of chronic multiple sclerosis issues is what seems to be progressing symptoms of trigeminal neuralgia. The patient is here with her today to discuss further management of her recently diagnosed and resected breast cancer. REVIEW OF SYSTEMS Review of systems is otherwise negative and all systems are reviewed. PAST MEDICAL HISTORY 1. Left breast cancer, as noted above. 2. Multiple sclerosis. 3. Hyperlipidemia. 4. Hypertension. 5. History of peptic ulcer disease. 6. Depression. 7. Hyperthyroidism. 8. Diabetes mellitus. PAST SURGICAL HISTORY 1. See above. 2. Status post hysterectomy in 1996. 3. Status post Baclofen pump installed in 2010 and 2017. 4. Status post gamma knife therapy for trigeminal neuralgia in 2004. SOCIAL HISTORY Patient is a nondrinker. There is no history of illicit drug use. She is a former smoker, having quit in 1994. FAMILY HISTORY There is a strong family history of autoimmune disease including lupus as well as rheumatoid arthritis. The patient also reports a history of breast cancer in a maternal aunt 1ge 60 to 65. There is also a history of pancreatic cancer in her maternal grandmother, again age 60 to 65. VITAL SIGNS Temperature 98.2, blood pressure 95/62, heart rate is 84, respirations 16, oxygen saturation is 95% on room air. PHYSICAL EXAMINATION GENERAL: Patient is alert and oriented x3, in no apparent distress, sitting in the exam room chair. She is kyphotic and appears fatigued. She is very pleasant and in good spirits. HEENT: Anicteric sclerae. NEUROLOGIC; Generalized weakness and some contracture of the right upper extremity. EXTREMITIES: Some edema of the bilateral lower extremities but no erythema or tenderness to palpation. SKIN: Dry skin diffusely but no concerning rash or lesion. LABORATORY STUDIES Reviewed per the [facility] record. IMAGING Please see history and present illness above. PATHOLOGY Please see history and present illness above. ASSESSMENT AND PLAN 1. Stage I ER/PA positive left breast cancer. I had a lengthy and in-depth visit with Lawanda and her today. Symptomatically, she seems to be doing fairly well, all things considered. She is basically at her baseline at this point in terms of overall function and activities of daily living. Obviously, her biggest factor in terms of her quality of life is her progressing multiple sclerosis. She does have quite a few other comorbidities but these seem to be well managed. We discussed her recent imaging, biopsy results, pathology report and surgical pathology. We discussed DCIS and the small focus of invasive breast cancer found on the mastectomy specimen. We discussed the negative lymph nodes noted at the time of her mastectomy. We spent time discussing the merits of consideration for adjuvant therapy. Because of negative margins and negative lymph nodes after mastectomy, I have not recommended adjuvant radiation. With her overall performance status and multiple comorbidities, as well as early stage breast cancer, I have not recommended cytotoxic chemotherapy. Reportedly, an Oncotype DX study is currently pending and we will watch for these results to return. We spent the vast majority of our time today discussing whether or not she should consider adjuvant endocrine therapy. We discussed Tamoxifen as well as the Aromatase inhibitors in detail. She would like to discuss things further with her and other family members and friends. With her current status, I am not 100% convinced that adjuvant endocrine therapy would improve outcomes for her, especially given the steadily progressing multiple sclerosis. That said, she has been dealing with the disease for about 30 years and if she tolerates adjuvant endocrine therapy it would not be unreasonable. As discussed, I would lean towards an Aromatase inhibitor and I am curious about her most recent DEXA scan date and results. She does report a history of at least osteopenia and we would want to confirm this as well. The patient and her had several additional questions for me today and I believe I answered all of their questions to their satisfaction. She would like to return to see me in about a month's time and we will discuss her situation once again. Thank you very much, Dr. Bernard, for allowing me to take part in the care of this delightful patient. Please do not hesitate to call with questions or concerns. I spent a total of 60 minutes of time face to face with the patient and her today and 55 minutes of this was spent in direct counseling and coordination of care. MONIQUE
[2018-07-27 14:30] VITALS: BP 97/69
[2018-07-27] MEDS ORDERED: INFLUENZA VIRUS VAC 0.5ML SYR IM ONLY ONE (15:00)
[2018-07-27] MEDS ORDERED: ANAS1TAB12 PO (15:07)
--- NOTE | 2018-07-27 23:35 | ONCOLOGY FOLLOW UP NOTE ---
EVENT DATE: July 27, 2018 REASON FOR FOLLOWUP Left breast cancer, ER/HI positive, status post mastectomy. CHIEF COMPLAINT Fatigue, weakness, multiple sclerosis symptoms (chronic). INTERIM HISTORY Lawanda returns to clinic for a followup visit today. She is accompanied by her . She reports that symptomatically, she is doing just about the same. Since our last visit, she did have a DEXA scan performed. She is curious about the results. She and her family have been talking about the possibility of starting adjuvant endocrine therapy for her recently diagnosed breast cancer. REVIEW OF SYSTEMS Otherwise negative, and all systems were reviewed. PAST MEDICAL HISTORY 1. Left breast cancer as noted above. 2. Multiple sclerosis. 3. Hyperlipidemia. 4. Hypertension. 5. History of peptic ulcer disease. 6. Depression. 7. Hyperthyroidism. 8. Diabetes mellitus. PAST SURGICAL HISTORY 1. See above. 2. Status post hysterectomy in 1996. 3. Status post Baclofen pump installed in 2010 and 2017. 4. Status post gamma knife therapy for trigeminal neuralgia in 2004. SOCIAL HISTORY Patient is a nondrinker. There is no history of illicit drug use. She is a former smoker, having quit in 1994. FAMILY HISTORY There is a strong family history of autoimmune disease including lupus as well as rheumatoid arthritis. The patient also reports a history of breast cancer in a maternal aunt age 60 to 65. There is also a history of pancreatic cancer in her maternal grandmother, again age 60 to 65. MEDICATIONS 1. Lexapro. 2. Levothyroxine. 3. Carbamazepine. 4. Flaxseed oil. 5. Vitamin D3. 6. Vitamin C. 7. Tecfidera. 8. Ditropan. 9. Baclofen. 10. Metformin. 11. Simvastatin. 12. Olanzapine. 13. Lisinopril. ALLERGIES LATEX. VITAL SIGNS Temperature 97.5, blood pressure 97/69, heart rate is 60, respirations 16, oxygen saturation is 97% on room air. PHYSICAL EXAMINATION GENERAL: Patient is alert and oriented times three, no apparent distress. She is sitting in her scooter. HEENT: Anicteric sclerae. MUSCULOSKELETAL: Kyphosis, but no erythema or tenderness at the extremities. SKIN: Cursory skin exam reveals no concerning rash or lesion. LABORATORY STUDIES, IMAGING, PATHOLOGY Please see Oncology History. ASSESSMENT AND PLAN Stage I, estrogen receptor/progesterone receptor-positive left breast cancer. I had a good visit with Lawanda and her today. Symptomatically, she continues to do about the same. Again, multiple sclerosis is certainly her biggest concern and threat to her overall well-being. She has been talking with her family about the possibility of starting a medication such as Arimidex. She did go for a DEXA scan, and we reviewed those results today. Her lumbar spine appears normal, but she does have osteopenia of the total hip. We discussed that starting an aromatase inhibitor would increase the risk that her bone mineral density would worsen. She understands this. The patient would like to give aromatase inhibitor a try. We again reviewed common side effects. We will have her come in for treatment education, and she will follow up here with either me or Denice Umaña, nurse practitioner, after two to three weeks of being on the Arimidex. Toxicity will be assessed at that time. MTDD
--- NOTE | 2018-07-29 19:55 | PROGRESS NOTE ---
DATE: July 29, 2018 I spoke with patient today via phone. She has a history of stage I left breast cancer, ER/IA positive. She saw Dr. Vargas on 07/27/18, who recommended treatment with anastrozole. Due to her multiple sclerosis, it is difficult for her to come to the clinic for education, so I spoke with her today via phone for a total of 20 minutes. Today, we reviewed the mechanism of action of anastrozole as well as the possible side effects. These include hot flashes/night sweats, arthralgias/myalgias, and possible loss of bone density. She did have a DEXA scan on 07/14/18, which showed minimal osteopenia in the femoral neck as well as the left total hip. The lumbar spine was normal. We reviewed that this would be repeated in one year to assess impact of the aromatase inhibitor on her bone health. Patient states understanding and plans to start this in the next few days. I have instructed her to call us if she develops any side effects that are not manageable. She will be seen again in August for further care. MONIQUE
--- NOTE | 2018-09-07 10:54 | PROGRESS NOTE ---
DATE: September 07, 2018 I spoke with the patient today via phone. She is a 62-year old female with fairly advanced multiple sclerosis, which limits her mobility. She was diagnosed with ER/MD positive left breast cancer and underwent left mastectomy. She started on anastrazole in July 2018. She tells me today that she is tolerating this very well. She has had no issues with hot flashes, night sweats or significant arthralgias/myalgias. Bone density on July 14, 2018, showed osteopenia in the left hip and femoral neck. I reiterated that anastrozole can cause further bone loss and bone density will likely be repeated in June 2019. Patient is not able to come to the clinic today due to bad weather as she is wheelchair bound. She states that she will call us in the next few months to reschedule her appointment as her mobility is significantly limited by her multiple sclerosis. MONIQUE
== END 2018-09-26 ==
LOC: ONC 14:24
PROVIDERS: ATTEND Internal Medicine Medical Oncology
DX: C50.512 Malignant neoplasm of lower-outer quadrant of left female breast (principal); Z17.0 Estrogen receptor positive status [ER+]; Z90.12 Acquired absence of left breast and nipple; G35 Multiple sclerosis; Z99.3 Dependence on wheelchair; E78.5 Hyperlipidemia, unspecified; I10 Essential (primary) hypertension; E11.9 Type 2 diabetes mellitus without complications; K27.9 Peptic ulcer, site unspecified, unspecified as acute or chronic, without hemorrhage or perforation; F32.9 Major depressive disorder, single episode, unspecified; Z87.891 Personal history of nicotine dependence; Z23 Encounter for immunization
CPT/HCPCS: 90471; 90674; 99202; G0463; 99212

== ENCOUNTER → 2018-11-28 | Outpatient (CLI) | payer MEDICAID ==
[2018-06-04 12:33] VITALS: BMI 29.5
[~2018-11-28] MED LIST changes: +ANAS1TAB12 PO
== END ==
LOC: LAB 16:07
PROVIDERS: ATTEND Family Medicine
DX: N39.0 Urinary tract infection, site not specified (principal)
CPT/HCPCS: 81001

== ENCOUNTER → 2019-03-03 | Outpatient (REF) | payer MEDICARE, MEDICAID ==
[2018-06-04 12:33] VITALS: BMI 29.5
== END ==
LOC: ZZSENDIN 15:29
PROVIDERS: ATTEND Physician Assistant
DX: N39.0 Urinary tract infection, site not specified (principal); B96.5 Pseudomonas (aeruginosa) (mallei) (pseudomallei) as the cause of diseases classified elsewhere
CPT/HCPCS: 87077; 87088; 87186